=== PATIENT | male | born 1955 | race Caucasian/White ===

== ENCOUNTER → 2022-07-16 15:09 | Outpatient (CLI) | payer MEDICARE, SELFPAY ==
--- NOTE | 2022-07-16 15:13 | DI.MRI.S_ITS ---
PROCEDURE: MR KNEE LT WO CON INDICATIONS: LEFT KNEE PAIN TECHNIQUE: Noncontrast sagittal PD fast spin echo and T2 fast spin echo with fat saturation, sagittal 3-D FLASH with fat saturation; coronal T1 spin echo and PD fast spin echo with fat saturation, and axial PD fast spin echo with fat saturation through the knee. COMPARISON: None. FINDINGS: Image quality: Excellent. Menisci: Linear oblique high T2 signal intensity traverses the inner, middle, and peripheral thirds of the anterior horn, body, and posterior horn medial meniscus, demonstrating inferior articular surface extension, indicating oblique tearing. Lateral meniscus is intact. Cruciate ligaments: The anterior and posterior cruciate ligaments appear intact. Medial structures: The medial collateral ligament appears intact. Visualized portions of the pes anserinus tendons appear normal. No abnormal bursal fluid. Lateral structures: The lateral collateral ligament, long and short heads of the biceps femoris tendon appear intact. The popliteus tendon appears normal. Iliotibial band appears normal. Anterior structures: The qu patellar tendon is intact. Low-grade partial-thickness tearing of the distal quadriceps tendon at the patellar insertion site is present. Patellar alignment is normal. No femoral trochlear dysplasia or ventral trochlear prominence. No edema in the infrapatellar fat pad. Bones and cartilage: No bone marrow contusions or fractures. There is subchondral cyst formation with surrounding degenerative marrow edema within the mid and anterior weight-bearing aspects of the medial tibial plateau. Mild tricompartmental periarticular osteophyte formation is present. Moderate articular cartilage loss diffusely overlies the weight-bearing aspects of the medial femoral condyle and medial tibial plateau. Mild articular cartilage loss diffusely overlies the weight-bearing aspects of the lateral femoral condyle and lateral tibial plateau. Severe articular cartilage loss overlies the patellar apex and adjacent portions of the medial and lateral patellar facets. Joint space: There is a small knee joint effusion and a trace Moreland's cyst. Normal appearing synovial plicae are incidentally noted. IMPRESSION: 1. Tricompartmental osteoarthritis with associated articular cartilage loss. 2. Medial meniscal tearing. 3. Low-grade tearing of the distal quadriceps tendon. 4. Small knee joint effusion. Dictated by: Rogelio Mustafa M.D. on 07/16/2022 at 16:04 Transcribed by: MARCELA on 07/16/2022 at 16:06 Approved by: Rogelio Mustafa M.D. on 07/16/2022 at 16:58
== END ==
PROVIDERS: PCP Internal Medicine; Referring Provider Orthopaedic Surgery Foot and Ankle Surgery; Visit Provider Orthopaedic Surgery Foot and Ankle Surgery
DX: S83.242A Other tear of medial meniscus, current injury, left knee, initial encounter (principal); S76.112A Strain of left quadriceps muscle, fascia and tendon, initial encounter; M17.12 Unilateral primary osteoarthritis, left knee; M25.462 Effusion, left knee
CPT/HCPCS: 73721

== ENCOUNTER → 2022-09-14 15:46 | Outpatient (CLI) | payer OTHER, SELFPAY ==
--- NOTE | 2022-09-14 | DI.US.S_ITS ---
PROCEDURE: US ABD AORTA ANEURYSM SCREEN INDICATIONS: infrarenal abdominal aortic aneurysm w/o rupture TECHNIQUE: Real time scanning was performed of the aorta and iliac arteries, with image documentation. COMPARISON: None. FINDINGS: Aorta: Proximal aortic diameter measures 2.8 x 2.8 cm. Mid-aorta measures 2.2 x 2.3 cm. Distal aortic diameter is 1.8 x 2.0 cm. Iliac arteries: Right common iliac artery measures 1.2 x 1.3 cm. Left common iliac artery measures 1.5 x 1.3 cm. IMPRESSION: Normal ultrasound the abdominal aorta without aneurysm Approved by: David Cali M.D. on 09/14/2022 at 17:52
== END ==
PROVIDERS: PCP Internal Medicine; Referring Provider Nurse Practitioner; Visit Provider Nurse Practitioner
DX: I71.43 Infrarenal abdominal aortic aneurysm, without rupture (principal)
CPT/HCPCS: 76706

== ENCOUNTER → 2024-01-09 10:11 | Outpatient (CLI) | payer OTHER, SELFPAY ==
--- NOTE | 2024-01-09 10:12 | DI.NM.S_ITS ---
PROCEDURE: NM LETTY PERF SPECT R&S PHARM Rest and pharmacological stress myocardial perfusion SPECT with gated imaging and ejection fraction RADIOPHARMACEUTICAL: 12.4 mCi Tc-99m tetrafosmin IV at rest and 25.2 mCi Tc-99m tetrafosmin IV at peak effect of pharmacological stress. [id number] was performed. INDICATIONS: Other ventricular tachycardia TECHNIQUE: Radiopharmaceutical was injected at peak stress test, and also at rest. SPECT images were obtained. SPECT myocardial perfusion images were displayed in short axis, horizontal long axis, and vertical long axis views. Gated images were reviewed using [employer] software. COMPARISON: None. CARDIAC STRESS: A pharmacologic stress test was performed under the supervision of an attending staff, using an infusion of lexiscan 0.4mg IV X1. Hemodynamic data: There is normal blood pressure and heart rate response to pharmacologic stress. Symptoms: The patient denied anginal chest pain. Aminophylline: none EKG: No diagnostic changes of ischemia; frequent PVCs. FINDINGS: Raw data: There is good myocardial uptake of radiotracer. No significant motion artifacts. Drmo-ww-[id number] ratio is 0.26 (normal is less than 0.38 for tetrafosmin tracer). Left ventricle function: Gated images demonstrate normal left ventricular wall thickening. No segmental wall motion abnormalities. No transient ischemic dilation; TID is 1.13 (normal less than 1.3). Left ventricle resting end diastolic volume is 206 mL. Left ventricle stress ejection fraction is 43%; normal range is above 45%. Myocardial perfusion: Moderately intense fixed apical and apical inferior wall defects that improve significantly with prone imaging, suggesting artifact. No ischemia and no definite prior infarction. IMPRESSION: Low risk, probably normal pharm nuclear stress test from inducible ischemia standpoint. 1) Moderately intense fixed apical and apical inferior wall defects that improve significantly with prone imaging, suggesting artifact. No ischemia and no definite prior infarction. 2) Enlarged left ventricle (resting EDV 206cc) with mildly reduced systolic function (EF post stress 43%). No regional wall motion abnormalities present. 3) No diagnostic ST changes with lexiscan. 4) No angina during the study. 5) No prior nuclear stress test available for comparison. Dictated by: Spike Mckeon MD on 01/10/2024 at 11:43 Approved by: Spike Mckeon MD on 01/10/2024 at 11:47
== END ==
PROVIDERS: PCP Internal Medicine; Referring Provider Nurse Practitioner; Visit Provider Nurse Practitioner
DX: I47.29 Other ventricular tachycardia (principal)
CPT/HCPCS: 78452; 93017; A9502; J2785

== ENCOUNTER → 2024-05-30 13:10 | Outpatient (CLI) | payer OTHER, SELFPAY ==
--- NOTE | 2024-05-30 13:13 | DI.MRI.S_ITS ---
PROCEDURE: MR KNEE RT WO CON INDICATIONS: MEDIAL MENISCUS TEAR TECHNIQUE: Noncontrast sagittal PD fast spin echo and T2 fast spin echo with fat saturation, sagittal 3-D FLASH with fat saturation; coronal T1 spin echo and PD fast spin echo with fat saturation, and axial PD fast spin echo with fat saturation through the knee. COMPARISON: [facility] [place], CR, XR KNEE 4+ VIEWS LEFT, 10/01/2023, 11:45. [facility], MR, MR KNEE LT WO CON, 07/16/2022, 15:19. FINDINGS: Image quality: Excellent. Anterior cruciate ligament: Intact. Posterior cruciate ligament: Intact. Medial collateral ligament: Remote prior partial tearing of the proximal medial collateral ligament. Some of the ligament fibers appear to remain intact. Lateral collateral ligament: Remote prior low-grade sprain of the proximal lateral collateral ligament. Medial meniscus: Complex tearing of the posterior horn and body of the medial meniscus extending to the inner third of the tibial articular surface. A small inferiorly displaced flap component is seen at the medial tibial gutter. Lateral meniscus: Intact. Medial and lateral tendons: The semimembranosus tendon insertions appear intact. Visualized portions of the pes anserinus tendons appear normal. The popliteus tendon is intact. Iliotibial band appears normal. Anterior structures: Mild distal quadriceps tendinosis. Patellar tendon is intact. No patellar subluxation. No femoral trochlear dysplasia or ventral trochlear prominence. No edema in the infrapatellar fat pad. Bones: No bone marrow contusions or fractures. Medial femorotibial cartilage: Full-thickness cartilage loss at the central weight-bearing portion of the medial tibial plateau with mild subchondral cystic changes and edema with high-grade partial-thickness cartilage loss at the adjacent portion of the medial femoral condyle. Small marginal osteophytes. Lateral femorotibial cartilage: Deep cartilage fissuring and partial-thickness cartilage irregularity in the central portion of the lateral tibial plateau. Small marginal osteophytes. Patellofemoral cartilage: Full-thickness cartilage loss at the median ridge of the patella extending to the medial and lateral facets with subchondral cystic changes and focal subchondral osteophyte formation. Full-thickness cartilage loss at the inferior portion of the medial femoral trochlea with subchondral osteophyte formation. Soft tissues: There is a small joint effusion. A small medial popliteal cyst is seen. There is nonspecific prepatellar subcutaneous soft tissue edema. The visualized musculature is normal in bulk. IMPRESSION: 1. Areas of full-thickness cartilage loss in the medial femorotibial compartment and patellofemoral compartment with subchondral cystic changes and edema. 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 2. Complex tearing of the medial meniscus with a horizontal oblique component extending to the inner third of the tibial articular surface and a small inferiorly displaced meniscal flap at the meniscal body extending to the medial tibial gutter. 3. Remote prior grade 2 sprain/partial tear of the proximal medial collateral ligament. Remote prior low-grade sprain of the proximal lateral collateral ligament. 4. Mild distal quadriceps tendinosis. 5. Small joint effusion. Small medial popliteal cyst. Approved by: Jem Mclean M.D. on 06/01/2024 at 10:48
== END ==
PROVIDERS: PCP Internal Medicine; Referring Provider Orthopaedic Surgery Foot and Ankle Surgery; Visit Provider Orthopaedic Surgery Foot and Ankle Surgery
DX: S83.231A Complex tear of medial meniscus, current injury, right knee, initial encounter (principal); S83.411A Sprain of medial collateral ligament of right knee, initial encounter; S83.421A Sprain of lateral collateral ligament of right knee, initial encounter; M94.261 Chondromalacia, right knee; M25.461 Effusion, right knee; M71.21 Synovial cyst of popliteal space [Baker], right knee
CPT/HCPCS: 73721

== ENCOUNTER → 2024-07-10 13:33 | Outpatient (CLI) | payer OTHER, SELFPAY ==
[2024-07-10 14:44] LABS: BUN Creatinine Ratio 25.6 (6-22); Blood Urea Nitrogen 30 mg/dL (9-20); Carbon Dioxide 21 mmol/L (22-32); Chloride 106 mmol/L (98-107); Estimated Glomerular Filt Rate > 60 mL/min (>60); Glucose 106 mg/dL (80-110); HEMOLYSIS < 15 (0-50); Potassium 4.3 mmol/L (3.4-5.1); Sodium 136 mmol/L (137-145)
[2024-07-10 14:52] LABS: NT-proBNP (BNP-Adult 18+) 4920 pg/mL (<125)
== END ==
PROVIDERS: PCP Internal Medicine; Referring Provider Internal Medicine Cardiovascular Disease; Visit Provider Internal Medicine Cardiovascular Disease
DX: R06.02 Shortness of breath (principal)
CPT/HCPCS: 36415; 80048; 83880

== ENCOUNTER 2024-07-23 10:21 | Emergency (ER) | payer MEDICARE, SELFPAY ==
[2024-07-23] VITALS (110 sets, daily range): BP systolic 87–154; BP diastolic 58–109; PULSE 90–126; RESP 18–57; TEMP 36.4; O2SAT 93–100; BMI 31.6
--- NOTE | 2024-07-23 10:29 | EKG_ITS ---
[facility] [address] [place] [address] Test Date: 2024-07-23 Pat Name: David Espinal Department: 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
--- NOTE | 2024-07-23 10:36 | DI.RAD.S_ITS ---
PROCEDURE: XR CHEST 1V INDICATIONS: chest pain TECHNIQUE: One view of the chest was acquired. COMPARISON: None. FINDINGS: Surgical changes and devices: None. Lungs and pleura: Lungs are mildly edematous. No pleural effusions or pneumothorax. Mediastinum: Mediastinal contours appear normal. Heart size is globally enlarged to a mild degree. Bones and chest wall: No suspicious bony lesions. Overlying soft tissues appear unremarkable. IMPRESSION: Mild chronic CHF pattern, no focal pneumonia found. Dictated by: Phani Doss M.D. on 07/23/2024 at 11:03 Approved by: Phani Doss M.D. on 07/23/2024 at 11:04
[2024-07-23 10:41] LABS: Add Manual Diff / Slide Review NO; Basophils Absolute Auto 100 /uL (0-100); Basophils Percent Auto 0.5 % (0-2); Eosinophils Absolute Auto 0 /uL (0-450); Eosinophils Percent Auto 0.3 % (2-4); Hematocrit 44.9 % (41-53); Hemoglobin 14.6 g/dL (13.5-17.5); Lymphocytes Absolute Auto 1100 /uL (1100-4500); Lymphocytes Percent Auto 9.1 % (25-40); Mean Corpuscular HGB Conc 32.5 % (30-36); Mean Corpuscular Hemoglobin 30.2 PG (26-34); Mean Corpuscular Volume 92.7 fL (80-100); Monocytes Absolute Auto 700 /uL (0-900); Monocytes Percent Auto 5.8 % (3-14); Neutrophils Absolute Auto 10300 /uL (1500-7000); Neutrophils Percent Auto 84.3 % (50-75); Platelet Count 249 X10^3/uL (150-400); Red Blood Cell Count 4.84 X10^6/uL (4.5-5.9); White Blood Cell Count 12.2 X10^3/uL (4.5-11.0)
[2024-07-23 10:45] LABS: Prothrombin Time 22.1 SECONDS (9.4-12.5)
[2024-07-23 10:48] LABS: PTT Partial Thromboplastin Tim 47 SECONDS (25.1-36.5)
[2024-07-23 10:49] LABS: Alanine Aminotransferase 64 IU/L (<50); Albumin 4.3 g/dL (3.5-5.0); Albumin Globulin Ratio 1.5 (1.0-2.8); Alkaline Phosphatase 63 U/L (38-126); Aspartate Aminotransferase 53 IU/L (17-59); BUN Creatinine Ratio 27.4 (6-22); Bilirubin Total 1.9 mg/dL (0.2-1.3); Blood Urea Nitrogen 34 mg/dL (9-20); Calcium 9.3 mg/dL (8.4-10.2); Carbon Dioxide 20 mmol/L (22-32); Chloride 105 mmol/L (98-107); Creatine Kinase 168 U/L (55-170); Estimated Glomerular Filt Rate > 60 mL/min (>60); Globulin 2.9 g/dL (1.7-4.1); Glucose 126 mg/dL (80-110); HEMOLYSIS < 15 (0-50); Lipase 75 U/L (23-300); Magnesium 2.3 mg/dL (1.6-2.3); Potassium 3.6 mmol/L (3.4-5.1); Sodium 140 mmol/L (137-145); Total Protein 7.2 g/dL (6.3-8.2)
--- NOTE | 2024-07-23 10:49 | ED.CHESTPAIN ---
HPI - Chest Pain <Ernestina BenjaminDO - Last Filed: 07/24/24 18:29> General Chief Complaint: Chest Pain Stated Complaint: Heart Failure Time Seen by Provider: 07/23/24 10:28 Source: patient, RN notes reviewed and old records reviewed Mode of arrival: Ambulatory Limitations: no limitations History of Present Illness HPI narrative: 69-year-old male history of atrial fibrillation on Xarelto, cardiac ablation, moderate to severe aortic stenosis, hypertension, dyslipidemia, COPD/asthma, GERD who presents with complaint of increasing wheezing and shortness of breath, difficulty with sleeping and some orthopnea. He was noticed some increased swelling in his calves but states his feet are actually little bit better. Occasionally has some chest pain or discomfort but not regularly. Denies any lightheadedness or syncope but describes himself as weak as a kitten. Denies any nausea or vomiting. No issues with bowel movements currently, no issues with urination. 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 He had a follow up appointment today and was told to go directly to the emergency department. He has been recommended to be admitted at [facility] where he follows with Cardiology. Patient wanted to drive himself but was encouraged to come here. Dr. Devlin is his supervisor painting [employer] who saw him today and yesterday. Per report Dr. Devlin spoke with Dr. Wei (sp?) [facility] in [place]. Patient states he has had prior cardiac ablation but no other cardiac interventions no stents or surgeries, had prior appendectomy. Allergic to sulfa. Quit tobacco a long time ago, has not alcoholic drink weekly, vapes marijuana occasionally but no other recreational drugs. His primary care is Dr. Garcia in [place]. Related Data Home Medications Medication Instructions Recorded Confirmed furosemide 20 mg tablet 20 mg PO DAILY 07/24/24 07/24/24 losartan 100 mg tablet 100 mg PO DAILY 07/24/24 07/24/24 metoprolol succinate 25 mg 25 mg PO DAILY 07/24/24 07/24/24 tablet,extended release 24 hr pantoprazole 40 mg tablet,delayed 40 mg PO DAILY 07/24/24 07/24/24 release prednisone 10 mg tablet 10 mg PO DAILY 07/24/24 07/24/24 zolpidem 5 mg tablet 5 mg PO DAILY 07/24/24 07/24/24 Previous Rx's Medication Instructions Recorded sodium,potassium,mag sulfates 17.5 See Rx Instructions PO .COMPLEX 05/20/24 gram-3.13 gram-1.6 gram oral soln #354 mL (Suprep Bowel Prep Kit) Allergies Allergy/AdvReac Type Severity Reaction Status Date / Time Sulfa (Sulfonamide Allergy Rash Verified 07/23/24 10:56 Antibiotics) Review of Systems <Ernestina Benjamin DO - Last Filed: 07/24/24 18:29> Review of Systems ROS Unobtainable: All systems reviewed & are unremarkable except as noted in HPI and below Patient History <Ernestina Benjamin DO - Last Filed: 07/24/24 18:29> Social History Smoking Status: Former smoker Smoking Status: Former smoker Exam <Ernestina Benjamin DO - Last Filed: 07/24/24 18:29> Narrative Exam Narrative: GENERAL: Alert and oriented x three, male in moderate distress. HEENT: Head normocephalic, atraumatic, EOMI, pupils reactive, face symmetric, moist mucous membranes NECK: Supple, full range of motion CARDIOVASCULAR: Tachycardic irregularly irregular rate and rhythm without murmurs, rubs or gallops. Edema bilateral lower extremities. RESPIRATORY: Breath sounds equal bilaterally, no wheezes rales or rhonchi. Mild tachypnea. No accessory muscle use. Speaks in full sentences. ABDOMEN: Soft, nontender. Normoactive bowel sounds all 4 quadrants. No guarding or rebound, rigidity, no mass : No CVA tenderness EXTREMITIES: Normal range of motion, no clubbing. Neurovascularly intact NEUROLOGICAL: Cranial nerves II through XII grossly intact. Moving all extremities SKIN: Warm, dry, no petechiae, no rashes or lesions. Initial Vital Signs Initial Vital Signs: Vital Signs Pulse Rate 125 H 07/23/24 10:24 Respiratory Rate 24 07/23/24 10:24 Pulse Oximetry 97 07/23/24 10:24 <Blaze Gonsalez DO - Last Filed: 07/24/24 05:55> Initial Vital Signs Initial Vital Signs: Vital Signs Pulse Rate 125 H 07/23/24 10:24 Respiratory Rate 24 07/23/24 10:24 Pulse Oximetry 97 07/23/24 10:24 Course <Ernestina Benjamin, DO - Last Filed: 07/24/24 18:29> Orders Ordered: Albuterol/Ipratropium (Albuterol/Ipratropium 3 Ml Ampul) 3 ml INH RTQ6HR PRN PRN Reason: Shortness Of Breath Atorvastatin Calcium (Atorvastatin 20 Mg Tablet) 40 mg PO BEDTIME [facility] Last Admin: 07/23/24 21:10 Dose: 40 mg Documented By: TERRI Digoxin (Digoxin 500 Mcg/2 Ml Ampul) 250 mcg IV Q6H [facility] Last Admin: 07/24/24 17:45 Dose: 250 mcg Documented By: Admin: 07/24/24 12:09 Dose: 250 mcg Documented By: Admin: 07/24/24 06:06 Dose: 250 mcg Documented By: Admin: 07/24/24 01:19 Dose: Not Given Documented By: Admin: 07/23/24 17:39 Dose: 250 mcg Documented By: PHUC Furosemide (Furosemide 40 Mg/4 Ml Vial) 40 mg IV Q12HR [facility] Sodium Chloride (Normal Saline 0.9%) 1,000 mls @ 1,000 mls/hr IV BOLUS PRN PRN Reason: Fluid replacement Last Infusion: 07/23/24 15:05 Dose: Infused Documented By: Admin: 07/23/24 11:23 Dose: 1,000 mls/hr Documented By: PHUC Discontinued Medications Aspirin (Aspirin 81 Mg Chew Tab) 324 mg PO NOW ONE Stop: 07/23/24 10:37 Last Admin: 07/23/24 11:08 Dose: Not Given Documented By: YESICA Digoxin (Digoxin 500 Mcg/2 Ml Ampul) 500 mcg IV NOW ONE Stop: 07/23/24 11:07 Last Admin: 07/23/24 11:22 Dose: 500 mcg Documented By: PHUC Furosemide (Furosemide 40 Mg/4 Ml Vial) 40 mg IV NOW ONE Stop: 07/23/24 11:55 Last Admin: 07/23/24 12:18 Dose: 40 mg Documented By: PHUC Furosemide (Furosemide 40 Mg/4 Ml Vial) 40 mg IV DAILY KIM Furosemide (Furosemide 40 Mg/4 Ml Vial) 40 mg IV NOW ONE Stop: 07/24/24 07:17 Last Admin: 07/24/24 08:08 Dose: 40 mg Documented By: ABBY Magnesium Sulfate (Magnesium Sulfate) 2 gm in 50 mls @ 150 mls/hr IV NOW ONE Stop: 07/23/24 22:49 Last Infusion: 07/23/24 22:58 Dose: Infused Documented By: TERRI Co-signed By: JORDANA Admin: 07/23/24 22:34 Dose: 150 mls/hr Documented By: TERRI Co-signed By: HUSSEIN Metoprolol Succinate (Metoprolol Er 25 Mg Tablet) 25 mg PO NOW ONE Stop: 07/24/24 09:17 Last Admin: 07/24/24 10:22 Dose: 25 mg Documented By: Pantoprazole Sodium (Pantoprazole 40 Mg Vial) 40 mg IV NOW ONE Stop: 07/23/24 18:26 Last Admin: 07/23/24 21:10 Dose: 40 mg Documented By: TERRI Rivaroxaban (Rivaroxaban 10 Mg Tablet) 20 mg PO NOW KIM Last Admin: 07/23/24 21:09 Dose: 20 mg Documented By: TERRI Vital Signs Vital signs: Vital Signs - 8 hr 07/24/24 10:30 07/24/24 10:30 07/24/24 10:40 Pulse Rate 111 H 107 H Respiratory Rate 22 25 H Blood Pressure 148/89 H Pulse Oximetry 98 98 Oxygen Delivery Method 07/24/24 10:50 07/24/24 11:00 07/24/24 11:01 Pulse Rate 109 H 99 H 105 H Respiratory Rate 25 H 27 H 26 H Blood Pressure Pulse Oximetry 98 98 98 Oxygen Delivery Method 07/24/24 11:01 07/24/24 11:10 07/24/24 11:20 Pulse Rate 104 H 112 H Respiratory Rate 26 H 26 H Blood Pressure 128/79 Pulse Oximetry 98 98 Oxygen Delivery Method 07/24/24 11:27 07/24/24 11:30 07/24/24 11:40 Pulse Rate 88 104 H 102 H Respiratory Rate 26 H Blood Pressure 128/79 Pulse Oximetry 98 97 Oxygen Delivery Method 07/24/24 11:50 07/24/24 12:00 07/24/24 12:00 Pulse Rate 108 H 115 H Respiratory Rate 24 Blood Pressure 133/68 Pulse Oximetry 96 97 Oxygen Delivery Method 07/24/24 12:09 07/24/24 12:10 07/24/24 12:20 Pulse Rate 112 H 113 H 89 Respiratory Rate 27 H Blood Pressure 133/68 Pulse Oximetry 98 98 Oxygen Delivery Method 07/24/24 12:30 07/24/24 12:32 07/24/24 12:32 Pulse Rate 94 H 87 Respiratory Rate Blood Pressure 133/77 Pulse Oximetry 97 98 Oxygen Delivery Method 07/24/24 12:40 07/24/24 12:50 07/24/24 13:00 Pulse Rate 98 H 111 H 110 H Respiratory Rate 24 30 H Blood Pressure Pulse Oximetry 98 98 97 Oxygen Delivery Method 07/24/24 13:01 07/24/24 13:01 07/24/24 13:10 Pulse Rate 101 H 115 H Respiratory Rate 31 H 21 Blood Pressure 149/99 H Pulse Oximetry 98 99 Oxygen Delivery Method 07/24/24 13:20 07/24/24 13:30 07/24/24 13:31 Pulse Rate 114 H 96 H 114 H Respiratory Rate 24 27 H 24 Blood Pressure Pulse Oximetry 99 99 98 Oxygen Delivery Method 07/24/24 13:31 07/24/24 13:40 07/24/24 13:50 Pulse Rate 114 H 99 H Respiratory Rate 19 23 Blood Pressure 155/85 H Pulse Oximetry 98 99 Oxygen Delivery Method 07/24/24 14:00 07/24/24 14:00 07/24/24 14:10 Pulse Rate 109 H 110 H Respiratory Rate 25 H 25 H Blood Pressure 129/99 H Pulse Oximetry 98 98 Oxygen Delivery Method 07/24/24 14:20 07/24/24 14:30 07/24/24 14:30 Pulse Rate 117 H 105 H Respiratory Rate 25 H 23 Blood Pressure 157/83 H Pulse Oximetry 98 98 Oxygen Delivery Method 07/24/24 14:40 07/24/24 14:50 07/24/24 15:00 Pulse Rate 110 H 103 H 107 H Respiratory Rate 23 24 28 H Blood Pressure Pulse Oximetry 98 98 97 Oxygen Delivery Method 07/24/24 15:01 07/24/24 15:01 07/24/24 15:10 Pulse Rate 113 H 113 H Respiratory Rate 29 H Blood Pressure 150/116 H Pulse Oximetry 98 98 Oxygen Delivery Method 07/24/24 15:20 07/24/24 15:30 07/24/24 15:30 Pulse Rate 118 H 111 H Respiratory Rate 21 Blood Pressure 143/101 H Pulse Oximetry 96 96 Oxygen Delivery Method Room Air 07/24/24 15:40 07/24/24 15:50 07/24/24 16:00 Pulse Rate 119 H 126 H Respiratory Rate 29 H 27 H Blood Pressure 123/88 Pulse Oximetry 97 94 Oxygen Delivery Method 07/24/24 16:00 07/24/24 16:10 07/24/24 16:20 Pulse Rate 108 H 105 H 118 H Respiratory Rate 24 20 25 H Blood Pressure Pulse Oximetry 94 94 96 Oxygen Delivery Method 07/24/24 16:30 07/24/24 16:30 07/24/24 16:40 Pulse Rate 110 H 115 H Respiratory Rate 27 H 27 H Blood Pressure 113/84 Pulse Oximetry 97 98 Oxygen Delivery Method Room Air 07/24/24 16:50 07/24/24 17:00 07/24/24 17:01 Pulse Rate 111 H 123 H 121 H Respiratory Rate 26 H Blood Pressure Pulse Oximetry 96 98 99 Oxygen Delivery Method 07/24/24 17:01 07/24/24 17:10 07/24/24 17:20 Pulse Rate 123 H 123 H Respiratory Rate 30 H Blood Pressure 114/75 Pulse Oximetry 99 97 Oxygen Delivery Method Room Air 07/24/24 17:45 Pulse Rate 98 H Respiratory Rate Blood Pressure 125/78 Pulse Oximetry Oxygen Delivery Method <Blaze Gonsalez, DO - Last Filed: 07/24/24 05:55> Orders Ordered: Albuterol/Ipratropium (Albuterol/Ipratropium 3 Ml Ampul) 3 ml INH RTQ6HR PRN PRN Reason: Shortness Of Breath Atorvastatin Calcium (Atorvastatin 20 Mg Tablet) 40 mg PO BEDTIME [facility] Last Admin: 07/23/24 21:10 Dose: 40 mg Documented By: TERRI Digoxin (Digoxin 500 Mcg/2 Ml Ampul) 250 mcg IV Q6H [facility] Last Admin: 07/24/24 17:45 Dose: 250 mcg Documented By: Admin: 07/24/24 12:09 Dose: 250 mcg Documented By: Admin: 07/24/24 06:06 Dose: 250 mcg Documented By: Admin: 07/24/24 01:19 Dose: Not Given Documented By: Admin: 07/23/24 17:39 Dose: 250 mcg Documented By: PHUC Furosemide (Furosemide 40 Mg/4 Ml Vial) 40 mg IV Q12HR [facility] Sodium Chloride (Normal Saline 0.9%) 1,000 mls @ 1,000 mls/hr IV BOLUS PRN PRN Reason: Fluid replacement Last Infusion: 07/23/24 15:05 Dose: Infused Documented By: Admin: 07/23/24 11:23 Dose: 1,000 mls/hr Documented By: PHUC Discontinued Medications Aspirin (Aspirin 81 Mg Chew Tab) 324 mg PO NOW ONE Stop: 07/23/24 10:37 Last Admin: 07/23/24 11:08 Dose: Not Given Documented By: YESICA Digoxin (Digoxin 500 Mcg/2 Ml Ampul) 500 mcg IV NOW ONE Stop: 07/23/24 11:07 Last Admin: 07/23/24 11:22 Dose: 500 mcg Documented By: PHUC Furosemide (Furosemide 40 Mg/4 Ml Vial) 40 mg IV NOW ONE Stop: 07/23/24 11:55 Last Admin: 07/23/24 12:18 Dose: 40 mg Documented By: PHUC Furosemide (Furosemide 40 Mg/4 Ml Vial) 40 mg IV DAILY [facility] Furosemide (Furosemide 40 Mg/4 Ml Vial) 40 mg IV NOW ONE Stop: 07/24/24 07:17 Last Admin: 07/24/24 08:08 Dose: 40 mg Documented By: ABBY Magnesium Sulfate (Magnesium Sulfate) 2 gm in 50 mls @ 150 mls/hr IV NOW ONE Stop: 07/23/24 22:49 Last Infusion: 07/23/24 22:58 Dose: Infused Documented By: TERRI Co-signed By: JORDANA Admin: 07/23/24 22:34 Dose: 150 mls/hr Documented By: TERRI Co-signed By: HUSSEIN Metoprolol Succinate (Metoprolol Er 25 Mg Tablet) 25 mg PO NOW ONE Stop: 07/24/24 09:17 Last Admin: 07/24/24 10:22 Dose: 25 mg Documented By: Pantoprazole Sodium (Pantoprazole 40 Mg Vial) 40 mg IV NOW ONE Stop: 07/23/24 18:26 Last Admin: 07/23/24 21:10 Dose: 40 mg Documented By: TERRI Rivaroxaban (Rivaroxaban 10 Mg Tablet) 20 mg PO NOW [facility] Last Admin: 07/23/24 21:09 Dose: 20 mg Documented By: TERRI Vital Signs Vital signs: Vital Signs - 8 hr 07/24/24 10:30 07/24/24 10:30 07/24/24 10:40 Pulse Rate 111 H 107 H Respiratory Rate 22 25 H Blood Pressure 148/89 H Pulse Oximetry 98 98 Oxygen Delivery Method 07/24/24 10:50 07/24/24 11:00 07/24/24 11:01 Pulse Rate 109 H 99 H 105 H Respiratory Rate 25 H 27 H 26 H Blood Pressure Pulse Oximetry 98 98 98 Oxygen Delivery Method 07/24/24 11:01 07/24/24 11:10 07/24/24 11:20 Pulse Rate 104 H 112 H Respiratory Rate 26 H 26 H Blood Pressure 128/79 Pulse Oximetry 98 98 Oxygen Delivery Method 07/24/24 11:27 07/24/24 11:30 07/24/24 11:40 Pulse Rate 88 104 H 102 H Respiratory Rate 26 H Blood Pressure 128/79 Pulse Oximetry 98 97 Oxygen Delivery Method 07/24/24 11:50 07/24/24 12:00 07/24/24 12:00 Pulse Rate 108 H 115 H Respiratory Rate 24 Blood Pressure 133/68 Pulse Oximetry 96 97 Oxygen Delivery Method 07/24/24 12:09 07/24/24 12:10 07/24/24 12:20 Pulse Rate 112 H 113 H 89 Respiratory Rate 27 H Blood Pressure 133/68 Pulse Oximetry 98 98 Oxygen Delivery Method 07/24/24 12:30 07/24/24 12:32 07/24/24 12:32 Pulse Rate 94 H 87 Respiratory Rate Blood Pressure 133/77 Pulse Oximetry 97 98 Oxygen Delivery Method 07/24/24 12:40 07/24/24 12:50 07/24/24 13:00 Pulse Rate 98 H 111 H 110 H Respiratory Rate 24 30 H Blood Pressure Pulse Oximetry 98 98 97 Oxygen Delivery Method 07/24/24 13:01 07/24/24 13:01 07/24/24 13:10 Pulse Rate 101 H 115 H Respiratory Rate 31 H 21 Blood Pressure 149/99 H Pulse Oximetry 98 99 Oxygen Delivery Method 07/24/24 13:20 07/24/24 13:30 07/24/24 13:31 Pulse Rate 114 H 96 H 114 H Respiratory Rate 24 27 H 24 Blood Pressure Pulse Oximetry 99 99 98 Oxygen Delivery Method 07/24/24 13:31 07/24/24 13:40 07/24/24 13:50 Pulse Rate 114 H 99 H Respiratory Rate 19 23 Blood Pressure 155/85 H Pulse Oximetry 98 99 Oxygen Delivery Method 07/24/24 14:00 07/24/24 14:00 07/24/24 14:10 Pulse Rate 109 H 110 H Respiratory Rate 25 H 25 H Blood Pressure 129/99 H Pulse Oximetry 98 98 Oxygen Delivery Method 07/24/24 14:20 07/24/24 14:30 07/24/24 14:30 Pulse Rate 117 H 105 H Respiratory Rate 25 H 23 Blood Pressure 157/83 H Pulse Oximetry 98 98 Oxygen Delivery Method 07/24/24 14:40 07/24/24 14:50 07/24/24 15:00 Pulse Rate 110 H 103 H 107 H Respiratory Rate 23 24 28 H Blood Pressure Pulse Oximetry 98 98 97 Oxygen Delivery Method 07/24/24 15:01 07/24/24 15:01 07/24/24 15:10 Pulse Rate 113 H 113 H Respiratory Rate 29 H Blood Pressure 150/116 H Pulse Oximetry 98 98 Oxygen Delivery Method 07/24/24 15:20 07/24/24 15:30 07/24/24 15:30 Pulse Rate 118 H 111 H Respiratory Rate 21 Blood Pressure 143/101 H Pulse Oximetry 96 96 Oxygen Delivery Method Room Air 07/24/24 15:40 07/24/24 15:50 07/24/24 16:00 Pulse Rate 119 H 126 H Respiratory Rate 29 H 27 H Blood Pressure 123/88 Pulse Oximetry 97 94 Oxygen Delivery Method 07/24/24 16:00 07/24/24 16:10 07/24/24 16:20 Pulse Rate 108 H 105 H 118 H Respiratory Rate 24 20 25 H Blood Pressure Pulse Oximetry 94 94 96 Oxygen Delivery Method 07/24/24 16:30 07/24/24 16:30 07/24/24 16:40 Pulse Rate 110 H 115 H Respiratory Rate 27 H 27 H Blood Pressure 113/84 Pulse Oximetry 97 98 Oxygen Delivery Method Room Air 07/24/24 16:50 07/24/24 17:00 07/24/24 17:01 Pulse Rate 111 H 123 H 121 H Respiratory Rate 26 H Blood Pressure Pulse Oximetry 96 98 99 Oxygen Delivery Method 07/24/24 17:01 07/24/24 17:10 07/24/24 17:20 Pulse Rate 123 H 123 H Respiratory Rate 30 H Blood Pressure 114/75 Pulse Oximetry 99 97 Oxygen Delivery Method Room Air 07/24/24 17:45 Pulse Rate 98 H Respiratory Rate Blood Pressure 125/78 Pulse Oximetry Oxygen Delivery Method MDM - Chest Pain <Ernestina Benjamin, - Last Filed: 07/24/24 18:29> Lab Data 07/24/24 06:08 07/24/24 06:08 Labs: Lab Results 07/23/24 07/23/24 07/24/24 Range/Units 10:31 12:41 06:08 WBC 12.2 H 9.7 (4.5-11.0) X10^3/uL RBC 4.84 4.47 L (4.5-5.9) X10^6/uL Hgb 14.6 13.5 (13.5-17.5) g/dL Hct 44.9 41.0 (41-53) % MCV 92.7 91.7 (80-100) fL MCH 30.2 30.3 (26-34) PG MCHC 32.5 33.0 (30-36) % RDW 15.0 H 15.2 H (11.6-14.8) % Plt Count 249 180 (150-400) X10^3/uL Neut % (Auto) 84.3 H 77.1 H (50-75) % Lymph % (Auto) 9.1 L 14.0 L (25-40) % [place] % (Auto) 5.8 6.6 (3-14) % Eos % (Auto) 0.3 L 1.5 L (2-4) % Baso % (Auto) 0.5 0.8 (0-2) % Neut # (Auto) 75891 H 7500 H (1102-7281) /uL Lymph # (Auto) 1100 1400 (0617-4026) /uL [place] # (Auto) 700 600 (0-900) /uL Eos # (Auto) 0 100 (0-450) /uL Baso # (Auto) 100 100 (0-100) /uL PT 22.1 H (9.4-12.5) SECONDS INR 2.0 H (0.9-1.3) APTT 47 H (25.1-36.5) SECONDS Sodium 140 138 (137-145) mmol/L Potassium 3.6 4.2 (3.4-5.1) mmol/L Chloride 105 107 (98-107) mmol/L Carbon Dioxide 20 L 26 (22-32) mmol/L BUN 34 H 33 H (9-20) mg/dL Creatinine 1.24 1.19 (0.66-1.25) mg/dL Estimated GFR > 60 > 60 (>60) mL/min BUN/Creatinine Ratio 27.4 H 27.7 H (6-22) Glucose 126 H 96 (80-110) mg/dL Calcium 9.3 8.6 (8.4-10.2) mg/dL Magnesium 2.3 2.4 H (1.6-2.3) mg/dL Total Bilirubin 1.9 H 1.5 H (0.2-1.3) mg/dL AST 53 38 (17-59) IU/L ALT 64 H 35 (<50) IU/L Alkaline Phosphatase 63 42 (38-126) U/L Total Creatine Kinase 168 (55-170) U/L Troponin I 0.099 H 0.088 H 0.087 H (0.01-0.034) ng/mL NT-Pro-B Natriuret Pep 88252 H 8100 H (<125) pg/mL Total Protein 7.2 5.8 L (6.3-8.2) g/dL Albumin 4.3 3.2 L (3.5-5.0) g/dL Globulin 2.9 2.6 (1.7-4.1) g/dL Albumin/Globulin Ratio 1.5 1.2 (1.0-2.8) Lipase 75 (23-300) U/L Imaging Data Chest x-ray: Radiologist's Impression: [place] [address] XRay Report Signed Patient: David Espinal MR#: [id number] : 1955 Acct:[id number] Age/Sex: 69 / M Date of Service: 07/23/24 Loc: ED Accession Number: [id number] Procedure: XR chest 1V Ordering Provider: Ernestina Benjamin D.O. PROCEDURE: XR CHEST 1V INDICATIONS: chest pain TECHNIQUE: One view of the chest was acquired. COMPARISON: None. FINDINGS: Surgical changes and devices: None. Lungs and pleura: Lungs are mildly edematous. No pleural effusions or pneumothorax. Mediastinum: Mediastinal contours appear normal. Heart size is globally enlarged to a mild degree. Bones and chest wall: No suspicious bony lesions. Overlying soft tissues appear unremarkable. IMPRESSION: Mild chronic CHF pattern, no focal pneumonia found. Dictated by: Phani Doss M.D. on 07/23/2024 at 11:03 Approved by: Phani Doss M.D. on 07/23/2024 at 11:04 ECG Data Attestation: I personally reviewed and interpreted this ECG as follows: Prior ECG tracings: available for review Interpretation: Appears to be AFib RVR rate of 113 QRS of 98 QTC of [address] elevation does have some frequent PVCs. Patient has prior from 12/24/2022 which appears similar. Appears to be atrial fibrillation rate 88 QRS of 106 QTC of 331. No acute ST changes appreciated. MDM Narrative Medical decision making narrative: 69-year-old male appears to be in heart failure could be related to his moderate to severe aortic stenosis he was also in atrial fibrillation heart rates in the 120s initial pressure was 100 systolic did have a drop to 80. He denies chest pain but does note increasing shortness of breath with the exertion and some increased swelling particularly in his calves. Patient because of his pressure was given a dose of digoxin we will give a small fluid bolus of 500 mL to see his response but concern for fluid overload. 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 Devlin and then again today. Patient was recommended to be hospitalized patient insisted on driving himself. Labs labs show white count of 12.2 hemoglobin of 14 platelets of 249. INR is 2 PTT is 47. Patient was on Xarelto. Electrolytes show a potassium of 3.6 sodium of 140, chloride of 105 CO2 of 20 BUN 34 creatinine of 1.24 glucose of 126 bilirubin is 1.9 AST is 53 with a ALT is 64 and alk-phos 63 lipase is 75, troponins indeterminate but close to positive at 0.099 [place] [address] most recent on 07/10/2024 was a BNP of 4920. EKG shows atrial fib rate of 113, prior from 12/24/2022 showed sinus bradycardia Chest x-ray mild CHF, no focal pneumonia found. 1156: Dr. Barcenas cardiology did talk to Dr. Devlin. Discussed had given a dose of digoxin notes patient is on Xarelto they have not had any missed doses would recommend some diuresis patient was tolerating that well attempted cardioversion maybe helpful to the patient although she notes would probably try to diurese 1st. Did discuss initial troponin is not quite positive but suspected maybe elevated on his repeat. If last dose of Xarelto was greater than 12 hours can start heparin drip but no bolus. We would like patient to be transferred would have a speak with the hospitalist. Bed availability is an issue currently but if patient has significantly worsened in the interim could transfer ED to ED. Dr. Gonsalez (1800): Received sign-out from morning provider, patient with a known history of CHF AFib on Xarelto was sent in by his supervisor painting [employer] for worsening CHF, was instructed to go directly to [place] however he states he was not able to make it and came here instead, patient initially presented AFib RVR in the 120s, patient was given did, with improvement and rate control, discussion with patient's Cardiology team Dr. Barcenas, agrees with current workup, states that if patient unable to be rate controlled would be okay for cardioversion, patient currently not requiring any supplemental oxygen, stable at this time pending transfer to [facility]. 07.24.24 @ 0700: Patient was signed out to morning provider, no overnight events, patient has remained rate controlled after administration of digoxin. Patient is still pending bed for transfer to [facility] 07/24/2024 Dr. Benjamin: Patient signed back out to myself by Dr. Gonsalez. Patient reported to be stable overnight continued on digoxin overall fairly rate controlled blood pressure has not improved still has some tachypnea. Appears to be on O2 this morning. Patient had a.m. labs white count improved to 9, hemoglobin and platelets are stable. Patient's electrolytes are appropriate BUN 33 creatinine 1.19, glucose is 96 bilirubin is 1.5 otherwise LFTs appropriate in his down from prior troponin is trending down words with BNP trending down words at 8100. Patient had his Xarelto last night he takes 20 mg daily, atorvastatin pantoprazole, did receive a dose of magnesium as his Mag was low. Continue with digoxin 250 mcg q.6 hours. Patient is still awaiting bed assignment at [facility] in [place]. Echo was ordered. Shows technically difficult AFib with rates between 66 and 108 during exam EF was 30-35% left atrium and ready tremors she was severely dilated moderate to severe aortic stenosis closer to severe, cardiology referral is recommended. Mild aortic regurg. Inferior vena cava not visualized. No pericardial effusion or pleural effusion. Recontacted Cardiology at [place] @ [address] Maldonado, cardiology [facility]. He is at [place] and aware of plan for transfer. Reviewed patient's prior echo and compared today patient has had a drop in his ejection fraction was 60% and is 30% today could be from tachy myopathy versus fluid overload versus other this time would consider transferring other facilities is unlikely to have bed availability soon we will continue with diuresis so we will increase Lasix to 40 mg b.i.d., continue with digoxin 250 mcg q.6 hours, did discuss had added back his metoprolol today would continue this as well as his other medications would continue to diuresis sounds like he is still fluid overloaded but would hold on cardioversion at this time as with his drop in ejection fraction would likely be unsuccessful. They note if patient becomes significantly unstable could emergently cardiovert if necessary. 1504: Updated patient on findings he was agreeable to transfer to other facilities as well discussed current . Patient is agreeable. Patient has had frequent PVCs and still in atrial fibrillation, rate between 80's and 110s. No hypotension. 1557: Spoke with Janina Webb, Dr. Alvarez hospitalist who accepts for transfer. Discussed patient has had some improvement we would likely be appropriate for tele bed at this time. Discussed patient's history, labs from today and yesterday as well as imaging and echo and workup as well as treatment here in the department. Updated patient, he was agreeable with the plan. Received bed assignment [id number]. <Blaze Gonsalez, DO - Last Filed: 07/24/24 05:55> Lab Data Labs: Lab Results 07/23/24 07/23/24 07/24/24 Range/Units 10:31 12:41 06:08 WBC 12.2 H 9.7 (4.5-11.0) X10^3/uL RBC 4.84 4.47 L (4.5-5.9) X10^6/uL Hgb 14.6 13.5 (13.5-17.5) g/dL Hct 44.9 41.0 (41-53) % MCV 92.7 91.7 (80-100) fL MCH 30.2 30.3 (26-34) PG MCHC 32.5 33.0 (30-36) % RDW 15.0 H 15.2 H (11.6-14.8) % Plt Count 249 180 (150-400) X10^3/uL Neut % (Auto) 84.3 H 77.1 H (50-75) % Lymph % (Auto) 9.1 L 14.0 L (25-40) % [place] % (Auto) 5.8 6.6 (3-14) % Eos % (Auto) 0.3 L 1.5 L (2-4) % Baso % (Auto) 0.5 0.8 (0-2) % Neut # (Auto) 16592 H 7500 H (6149-0163) /uL Lymph # (Auto) 1100 1400 (0606-4507) /uL [place] # (Auto) 700 600 (0-900) /uL Eos # (Auto) 0 100 (0-450) /uL Baso # (Auto) 100 100 (0-100) /uL PT 22.1 H (9.4-12.5) SECONDS INR 2.0 H (0.9-1.3) APTT 47 H (25.1-36.5) SECONDS Sodium 140 138 (137-145) mmol/L Potassium 3.6 4.2 (3.4-5.1) mmol/L Chloride 105 107 (98-107) mmol/L Carbon Dioxide 20 L 26 (22-32) mmol/L BUN 34 H 33 H (9-20) mg/dL Creatinine 1.24 1.19 (0.66-1.25) mg/dL Estimated GFR > 60 > 60 (>60) mL/min BUN/Creatinine Ratio 27.4 H 27.7 H (6-22) Glucose 126 H 96 (80-110) mg/dL Calcium 9.3 8.6 (8.4-10.2) mg/dL Magnesium 2.3 2.4 H (1.6-2.3) mg/dL Total Bilirubin 1.9 H 1.5 H (0.2-1.3) mg/dL AST 53 38 (17-59) IU/L ALT 64 H 35 (<50) IU/L Alkaline Phosphatase 63 42 (38-126) U/L Total Creatine Kinase 168 (55-170) U/L Troponin I 0.099 H 0.088 H 0.087 H (0.01-0.034) ng/mL NT-Pro-B Natriuret Pep 13694 H 8100 H (<125) pg/mL Total Protein 7.2 5.8 L (6.3-8.2) g/dL Albumin 4.3 3.2 L (3.5-5.0) g/dL Globulin 2.9 2.6 (1.7-4.1) g/dL Albumin/Globulin Ratio 1.5 1.2 (1.0-2.8) Lipase 75 (23-300) U/L MDM Narrative Medical decision making narrative: 69-year-old male appears to be in heart failure could be related to his moderate to severe aortic stenosis he was also in atrial fibrillation heart rates in the 120s initial pressure was 100 systolic did have a drop to 80. He denies chest pain but does note increasing shortness of breath with the exertion and some increased swelling particularly in his calves. Patient because of his pressure was given a dose of digoxin we will give a small fluid bolus of 500 mL to see his response but concern for fluid overload. 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 Devlin and then again today. Patient was recommended to be hospitalized patient insisted on driving himself. Labs labs show white count of 12.2 hemoglobin of 14 platelets of 249. INR is 2 PTT is 47. Patient was on Xarelto. Electrolytes show a potassium of 3.6 sodium of 140, chloride of 105 CO2 of 20 BUN 34 creatinine of 1.24 glucose of 126 bilirubin is 1.9 AST is 53 with a ALT is 64 and alk-phos 63 lipase is 75, troponins indeterminate but close to positive at 0.099 [place] [address] most recent on 07/10/2024 was a BNP of 4920. EKG shows atrial fib rate of 113, prior from 12/24/2022 showed sinus bradycardia Chest x-ray mild CHF, no focal pneumonia found. 1156: Dr. Barcenas cardiology did talk to Dr. Devlin. Discussed had given a dose of digoxin notes patient is on Xarelto they have not had any missed doses would recommend some diuresis patient was tolerating that well attempted cardioversion maybe helpful to the patient although she notes would probably try to diurese 1st. Did discuss initial troponin is not quite positive but suspected maybe elevated on his repeat. If last dose of Xarelto was greater than 12 hours can start heparin drip but no bolus. We would like patient to be transferred would have a speak with the hospitalist. Bed availability is an issue currently but if patient has significantly worsened in the interim could transfer ED to ED. Dr. Gonsalez (1800): Received sign-out from morning provider, patient with a known history of CHF AFib on Xarelto was sent in by his supervisor painting [employer] for worsening CHF, was instructed to go directly to [place] however he states he was not able to make it and came here instead, patient initially presented AFib RVR in the 120s, patient was given did, with improvement and rate control, discussion with patient's Cardiology team Dr. Barcenas, agrees with current workup, states that if patient unable to be rate controlled would be okay for cardioversion, patient currently not requiring any supplemental oxygen, stable at this time pending transfer to [facility]. 07.24.24 @ 0700: Patient was signed out to morning provider, no overnight events, patient has remained rate controlled after administration of digoxin. Patient is still pending bed for transfer to [facility] Critical Care Time <Ernestina Benjamin, - Last Filed: 07/24/24 18:29> Critical Care Time Critical Care Time: Yes Total Critical Care Time: 40 Attestation: The high probability of a clinically significant, sudden or life threatening deterioration of the cardiac system(s) required my full and direct attention, intervention and personal management. The aggregate critical care time was [--] minutes. This time is in addition to time spent performing reported procedures but includes the following: [x] Data Review and interpretation [x] Patient assessment and monitoring of vital signs [x] Documentation [x] Medication orders and management Discharge Plan Departure Patient Disposition: [facility] Clinical Impression: Atrial fibrillation with rapid ventricular response, Congestive heart failure (CHF), Aortic stenosis, severe Prescriptions: No Action sodium,potassium,mag sulfates [Suprep Bowel Prep Kit] 17.5-3.13-1.6 gram recon soln See Rx Instructions PO .COMPLEX Qty: 354 0RF Rx Instructions: take as directed by Physician furosemide 20 mg tablet 20 mg PO DAILY Patient Comments: [NO ORIGINAL SIG] metoprolol succinate 25 mg tablet extended release 24 hr 25 mg PO DAILY Patient Comments: [NO ORIGINAL SIG] zolpidem 5 mg tablet 5 mg PO DAILY prednisone 10 mg tablet 10 mg PO DAILY Patient Comments: [NO ORIGINAL SIG] pantoprazole 40 mg tablet,delayed release (DR/EC) 40 mg PO DAILY losartan 100 mg tablet 100 mg PO DAILY Referrals: Bashir Garcia MD [Primary Care Provider] -
[2024-07-23 11:01] LABS: NT-proBNP (BNP-Adult 18+) 11100 pg/mL (<125); Troponin I 0.099 ng/mL (0.01-0.034)
[2024-07-23] MEDS: DIGOXIN 500 MCG/2 ML AMPUL IV (11:22)
[2024-07-23] MEDS: SODIUM CHLORIDE 0.9% 1,000 ML 1000 ML IV (11:23)
[2024-07-23] MEDS: FUROSEMIDE 40 MG/4 ML VIAL IV (12:18)
--- NOTE | 2024-07-23 12:35 | EKG_ITS ---
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
[2024-07-23 13:12] LABS: Troponin I 0.088 ng/mL (0.01-0.034)
--- NOTE | 2024-07-23 15:05 | PC.NURSE ---
Patient has congestive heart failure. Patient received 300ml of normal saline and then provider asked to stop the order. This RN pulled down IV and destroyed the remainder of the infusion 700ml.
[2024-07-23] MEDS: DIGOXIN 500 MCG/2 ML AMPUL 250 MCG IV (17:39)
--- NOTE | 2024-07-23 21:00 | PC.NURSE ---
Groom and soda provided per patient request.
[2024-07-23] MEDS: RIVAROXABAN 10 MG TABLET 20 MG PO (21:09)
[2024-07-23] MEDS: ATORVASTATIN 20 MG TABLET 40 MG PO (21:10)
[2024-07-23] MEDS: PANTOPRAZOLE 40 MG VIAL IV (21:10)
[2024-07-23] MEDS: MAGNESIUM SULFATE 2 GM/50 ML PIGGYBACK IV (22:34)
[2024-07-24] VITALS (118 sets, daily range): BP systolic 103–208; BP diastolic 63–118; PULSE 65–129; RESP 15–48; O2SAT 88–100
--- NOTE | 2024-07-24 00:54 | PC.NURSE ---
Pt resting quietly with eyes closed, resps even and not labored. No distress noted at this time. Pt noted to regularly drop O2 sats below 90% while resting. Placed on 2lnc at this time. Pt remains connected to cardiac, resp, blood pressure, and pulse ox monitors with alarms on and audible. Call light within reach.
--- NOTE | 2024-07-24 01:48 | PC.NURSE ---
Pt resting quietly with eyes closed, resps even and not labored. No distress noted at this time. Pt remains connected to cardiac, resp, blood pressure, and pulse ox monitors with alarms on and audible. Call light in reach.
--- NOTE | 2024-07-24 02:34 | PC.NURSE ---
No change in patient condition or status. Pt resting quietly with eyes closed, resps even and not labored. No distress noted at this time. Pt remains connected to cardiac, resp, blood pressure, and pulse ox monitors with alarms on and audible. Call light within reach.
--- NOTE | 2024-07-24 04:30 | PC.NURSE ---
Pt noted to be restless and frequently repositioning self in ED stretcher. Pt states no specific complaint, simply having trouble getting comfortable. Pt assisted to reposition and warm blankets given. pt states better at the moment. Pt remains connected to cardiac, resp, blood pressure, and pulse ox monitors with alarms on and audible. Call light within reach.
--- NOTE | 2024-07-24 05:20 | PC.NURSE ---
[employer] REP note: Spoke w/ Rudy at [facility] regarding patient at 0452 no beds currently, hoping for some discharges in AM.
--- NOTE | 2024-07-24 05:30 | PC.NURSE ---
Pt resting quietly with eyes closed, resps even and not labored. No distress noted at this time. Pt remains connected to cardiac, resp, blood pressure, and pulse ox monitors with alarms on and audible. Call light within reach.
[2024-07-24] MEDS: DIGOXIN 500 MCG/2 ML AMPUL 250 MCG IV ×3 (06:06→17:45)
--- NOTE | 2024-07-24 06:10 | PC.NURSE ---
AM labs drawn from existing iV line without difficulty.
[2024-07-24 06:17] LABS: Add Manual Diff / Slide Review NO; Basophils Absolute Auto 100 /uL (0-100); Basophils Percent Auto 0.8 % (0-2); Eosinophils Absolute Auto 100 /uL (0-450); Eosinophils Percent Auto 1.5 % (2-4); Hemoglobin 13.5 g/dL (13.5-17.5); Lymphocytes Absolute Auto 1400 /uL (1100-4500); Mean Corpuscular Hemoglobin 30.3 PG (26-34); Mean Corpuscular Volume 91.7 fL (80-100); Monocytes Absolute Auto 600 /uL (0-900); Monocytes Percent Auto 6.6 % (3-14); Neutrophils Absolute Auto 7500 /uL (1500-7000); Neutrophils Percent Auto 77.1 % (50-75); Platelet Count 180 X10^3/uL (150-400); Red Blood Cell Count 4.47 X10^6/uL (4.5-5.9); Red Cell Distribution Width 15.2 % (11.6-14.8); White Blood Cell Count 9.7 X10^3/uL (4.5-11.0)
[2024-07-24 06:37] LABS: Alanine Aminotransferase 35 IU/L (<50); Albumin 3.2 g/dL (3.5-5.0); Albumin Globulin Ratio 1.2 (1.0-2.8); Alkaline Phosphatase 42 U/L (38-126); Aspartate Aminotransferase 38 IU/L (17-59); BUN Creatinine Ratio 27.7 (6-22); Bilirubin Total 1.5 mg/dL (0.2-1.3); Blood Urea Nitrogen 33 mg/dL (9-20); Calcium 8.6 mg/dL (8.4-10.2); Carbon Dioxide 26 mmol/L (22-32); Chloride 107 mmol/L (98-107); Estimated Glomerular Filt Rate > 60 mL/min (>60); Globulin 2.6 g/dL (1.7-4.1); Glucose 96 mg/dL (80-110); Potassium 4.2 mmol/L (3.4-5.1); Sodium 138 mmol/L (137-145); Total Protein 5.8 g/dL (6.3-8.2)
[2024-07-24 06:38] LABS: HEMOLYSIS 54 (0-50)
[2024-07-24 06:49] LABS: NT-proBNP (BNP-Adult 18+) 8100 pg/mL (<125); Troponin I 0.087 ng/mL (0.01-0.034)
--- NOTE | 2024-07-24 07:34 | DI.ECHO.S_ITS ---
[facility]---------+ [facility] : : [address] : : [place] : : [address] : : Phone: [phone] Echocardiogram Report + + :Name: GODWIN OLIVEIRA Study Date: 07/24/2024 Height: 75 in : :Hospital ReadingLocation: Weight: 253 lb : : Gender: Male BSA: 2.4 m2 : :: 1955 Age: 69 yrs BP: 148/89 mmHg: :Reason For Study: CONGESTIVE HEART FAILURE, ATRIAL : :FIBRILLATION : :Ordering Physician: JESSI, : :PILY Performed By: Gordo Light : :Referring: PILY BOWEN : + + Interpretation Summary The study quality was technically difficult. The patient was in atrial fibrillation with heart rates between 66-108 bpm during the exam. The ejection fraction is estimated to be 30-35%. The right ventricular systolic function is normal. The left atrium is severely dilated. The right atrium is severely dilated. There is mild mitral regurgitation. There is moderate to severe aortic stenosis, closer to severe. (cardiology referral is recommended) There is mild aortic regurgitation. The inferior vena cava was not visualized. Procedure: A two-dimensional transthoracic echocardiogram with color flow and Doppler was performed. The study quality was technically difficult. There is no prior echocardiogram noted for this patient. The patient was in atrial fibrillation with heart rates between 66-108 bpm during the exam. Left Ventricle: The left ventricle is normal in size. There is normal left ventricular wall thickness. There is no ventricular septal defect visualized. The ejection fraction is estimated to be 30-35%. Septal motion is consistent with conduction abnormality. Diastolic function could not be accurately assessed due to atrial fibrillation. Right Ventricle: The right ventricle is mild to moderately dilated. The right ventricular systolic function is normal. Atria: The left atrium is severely dilated. The right atrium is severely dilated. There is no Doppler evidence for an interatrial shunt. Mitral Valve: There is mild mitral annular calcification. The mitral valve leaflets are mildly calcified. There is mild mitral regurgitation. Aortic Valve: There is moderate aortic valve sclerosis. The aortic valve is moderately calcified. There is moderate to severe aortic stenosis. The peak aortic velocity is 3.69 m/sec. The aortic valve mean gradient is 30.3 mmHg. The calculated aortic valve area is 0.7 cm2. There is mild aortic regurgitation. Tricuspid Valve: The tricuspid valve is not well visualized, but is grossly normal. There is trace tricuspid regurgitation. Pulmonic Valve: The pulmonic valve is not well seen, but is grossly normal. There is no pulmonic valvular regurgitation. Great Vessels: The aortic root is normal size. The dimensions of the ascending aorta are normal. The pulmonary artery is not well visualized, but is probably normal size. The inferior vena cava was not visualized. Pericardium/ Pleura There is no pericardial effusion. There is no pleural effusion. MMode/2D Measurements & Calculations LVIDd: 6.2 cm LVOT diam: 2.2 cm LVIDs: 4.9 cm Ao root diam: 3.6 cm FS: 21.1 % asc Aorta Diam: 3.4 cm EPSS: 1.7 cm IVSd: 1.1 cm LVPWd: 0.99 cm LV chester. diameter/BSA (cm/m^2): 2.6 LV sys. diameter/BSA (cm/m^2): 2.0 LA A2 area: 32.8 cm2 RA long axis: 5.6 cm LA A4 area: 28.3 cm2 RA area: 26.8 cm2 LA length (vol): 6.7 cm RA vol: 109.6 ml LA vol: 117.0 ml RA : 45.2 ml/m2 LA vol index: 48.3 ml/m2 RVD1 (basal): 5.0 cm RVD2 (mid): 3.8 cm TAPSE: 2.1 cm Doppler Measurements & Calculations Ao V2 max: 369.4 cm/sec LVOT Max Low: 65.1 cm/sec Ao V2 mean: 256.2 cm/sec LV V1 max P.7 mmHg Ao max P.6 mmHg LV V1 VTI: 12.6 cm Ao mean P.3 mmHg LIONEL(I,D): 0.68 cm2 Ao V2 VTI: 70.2 cm LIONEL(V,D): 0.66 cm2 sev ratio: 0.18 LIONEL indexed to BSA (cm^2/m^2): 0.28 MV E max low: 99.0 cm/sec TR max low: 347.2 cm/sec MV A max low: 25.6 cm/sec TR max P.2 mmHg MV E/A: 3.9 PA V2 max: 71.9 cm/sec Med Peak E' Low: 5.2 cm/sec PA V2 mean: 45.9 cm/sec E/E' med: 19.0 PA mean P.98 mmHg Lat Peak E' Low: 8.0 cm/sec PA pr(Accel): 53.3 mmHg E/E' lat: 12.4 E/e' average: 15.7 MV dec time: 0.13 sec [facility] 47.4 ml Reading Physician:01:04 PM
[2024-07-24] MEDS: FUROSEMIDE 40 MG/4 ML VIAL IV (08:08)
--- NOTE | 2024-07-24 08:22 | PC.NURSE ---
placed patient in a hospital bed. reports he is more comfortable
[2024-07-24 09:27] LABS: Magnesium 2.4 mg/dL (1.6-2.3)
[2024-07-24] MEDS: METOPROLOL ER 25 MG TABLET PO (10:22)
== END 2024-07-24 19:53 | disposition short-term general hospital (02) ==
PROVIDERS: Emergency Medicine; Emergency Provider Student in an Organized Health Care Education/Training Program; PCP Internal Medicine
DX: I48.91 Unspecified atrial fibrillation (principal); I50.9 Heart failure, unspecified; I35.0 Nonrheumatic aortic (valve) stenosis; E78.5 Hyperlipidemia, unspecified; J44.9 Chronic obstructive pulmonary disease, unspecified; I11.0 Hypertensive heart disease with heart failure; Z87.891 Personal history of nicotine dependence; Z79.01 Long term (current) use of anticoagulants
CPT/HCPCS: 36415; 71045; 80053; 82550; 83690; 83735; 83880; 84484; 85025; 85610; 85730; 93005; 93306; 96361; 96365; 96375; 96376; 99285; 99291; J1160; J1940; J2470; J3475